=== PATIENT | female | born 2000 | race Caucasian/White ===

== ENCOUNTER 2022-03-03 03:38 | Emergency (ER) | payer OTHER ==
[2022-03-03 05:58] LABS: BILIRUBIN Negative (Negative); BLOOD Negative (Negative); CLARITY Turbid (Clear); COLOR Yellow (Yellow); GLUCOSE Negative (Negative); KETONE Trace (Negative); LEUKO ESTERASE 1+ (Negative); NITRITE Positive (Negative); SPECIFIC GRAVITY 1.025 (1.001-1.030)
[2022-03-03 06:17] LABS: BACTERIA 1+; CALCIUM OXALATE CRYSTALS 2+; EPITHELIAL CELLS 16-20; MUCOUS 4+
[2022-03-03] MEDS ORDERED: MACROBID100 M1 PO (07:28)
== END 2022-03-03 10:18 | disposition home or self-care (01) ==
LOC: ED 03:38
PROVIDERS: Emergency Medicine
DX: S09.90XA Unspecified injury of head, initial encounter (principal); N39.0 Urinary tract infection, site not specified; Y08.89XA Assault by other specified means, initial encounter; Y93.89 Activity, other specified; Y92.89 Other specified places as the place of occurrence of the external cause; Y99.8 Other external cause status